=== PATIENT | female | born 1985 | race Caucasian/White ===

== ENCOUNTER 2016-10-24 02:51 | Emergency (ER) | payer MEDICAID ==
[~2016-10-24] VITALS: Ht 157.5 cm; Wt 90.7 kg
[~2016-10-24 02:51] MED LIST: ACCUNEB SO1.25 MG/1 INH; AMOXICILLIN 50500 MG PO; LEVOTHYROXINE0.05 MG PO; NORCO 10-325 T1 EACH PO; NORCO 5-325 TA1 EACH PO; ONDANSETRON HCL4 M2 PO; ZOFRAN ODT4 MG PO
[2016-10-24 02:57] VITALS: BP 130/49
[2016-10-24] MEDS ORDERED: REGLAN 10 MG TA10 MG PO (03:05)
== END 2016-10-24 03:18 | disposition home or self-care (01) ==
LOC: ER 02:51
DX: R10.32 Left lower quadrant pain (principal); R11.2 Nausea with vomiting, unspecified; E03.9 Hypothyroidism, unspecified; Z90.710 Acquired absence of both cervix and uterus; Z90.49 Acquired absence of other specified parts of digestive tract; Z91.041 Radiographic dye allergy status; Z88.5 Allergy status to narcotic agent; Z88.6 Allergy status to analgesic agent; Z88.8 Allergy status to other drugs, medicaments and biological substances